=== PATIENT | female | born 1995 ===

== ENCOUNTER 2018-06-05 10:22 | Emergency (ER) | payer MEDICAID, OTHER ==
[2018-06-05 10:42] VITALS: TEMP 97.8; O2SAT 100; BMI 18.8
--- NOTE | 2018-06-05 10:48 | EDPD ---
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 Patient notes she was at work when she began coughing, wheezing, experiencing chest pain, rapid heart rate, and shortness of breath. Patient notes she took 2 pumps of Albuterol, which provided minimal relief. Patient notes this feels like previous asthma attacks, however, it feels stronger and less controllable. Patient denies any fevers, chills, abdominal pain, nausea, vomiting, diarrhea, back pain, neck pain, headache, dizziness, or any other complaint. Time/Duration: Prior to Arrival Symptom Onset: Sudden Symptom Course: Unchanged Activities at Onset: Light Context: Work Past Medical History - Provider Review Nursing Documentation Reviewed: Yes Family/Social History - Physician Review Nursing Documentation Reviewed: Yes Family/Social History: Unknown Family HX Allergies/Home Meds Allergies/Adverse Reactions: Allergies No Known Allergies Allergy (Verified 06/05/18 10:32) Home Medications: Home Meds Medication Instructions Recorded Confirmed Albuterol 0.042% [Albuterol 0.042% 1 puff IH PRN PRN 06/05/18 06/05/18 Inhal Natasha (1.25mg/3ml) UD] Pediatric Review of Systems - Physician Review All systems were reviewed & negative as marked: Yes - Review of Systems Constitutional: Normal Eyes: Normal ENT: Normal Respiratory: SOB, Cough, Wheezing Cardiovascular: Chest Pain Gastrointestinal: Normal. absent: Abdominal Pain, Diarrhea, Nausea, Vomitting Genitourinary Female: Normal. absent: Dysuria, Frequency, Hematuria Musculoskeletal: Normal. absent: Back Pain, Neck Pain Skin: Normal. absent: Rash Neurologic: Normal. absent: Headache, Dizziness Endocrine: Normal Hemo/Lymphatic: Normal Psychiatric: Normal Pediatric Physical Exam - Physical Exam Narrative Physical Exam (Text): 06/05/18 10:52 Gen: VS reviewed, alert, well developed, well nourished, nontoxic, mild distress. ENT: normal pharynx. Eye: EOMI, PERRL. Neck: no JVD, supple, no adenopathy. CV: Tachycardiac, regular rhythm, no rubs, no murmur, no gallops, S1, S2, pulses equal and strong. Pulm: no distress, clear to auscultation, no wheeze, no rhonchi, breath sounds equal, no rales. Abd: soft, nontender, no guarding, no rebound, no rigidity, normal bowel sounds. Ext: no edema. Skin: good color, no rash, no cyanosis. Psych: responds appropriately to questions, anxious. Neuro: oriented x 3, CN2-12 intact grossly, motor intact, sensation intact. Vital Signs Temp Pulse Resp BP Pulse Ox 06/05/18 13:26 68 18 125/69 100 06/05/18 11:39 75 18 127/71 100 06/05/18 10:44 97.8 F 81 22 129/81 100 06/05/18 10:22 97.8 F 81 22 129/81 100 Medical Decision Making ED Course and Treatment: 06/05/18 10:54 Impression: 22 year old female presents to the emergency department complaining of continuous shortness of breath s/p asthma exacerbation. 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 06/05/18 12:19 Chest X-ray reviewed, shows: LUNGS: No active pulmonary disease. PLEURA: No significant pleural effusion identified. No pneumothorax apparent. CARDIOVASCULAR: Normal. OSSEOUS STRUCTURES: No significant abnormalities. VISUALIZED UPPER ABDOMEN: Normal. OTHER FINDINGS: None. IMPRESSION: No active disease. 06/05/18 14:18 patient feels much better and ready to go home. patient states that she has been dealing with diarrhea recently which may contribute to the hypokalemia today. patient only uses her albuterol inhaler as needed. patient will follow up with pcp for repeat potassium levels. - Lab Interpretations Lab Results: 06/05/18 11:10 06/05/18 11:10 Lab Results 06/05/18 11:10: Magnesium 1.8 06/05/18 11:10: D-Dimer, Quantitative < 200 06/05/18 11:10: Urine Opiates Screen Negative, Urine Methadone Screen Negative, Ur Barbiturates Screen Negative, Ur Phencyclidine Scrn Negative, Ur Amphetamines Screen Negative, U Benzodiazepines Scrn Negative, U Oth Cocaine Metabols Negative, U Cannabinoids Screen Negative 06/05/18 11:10: Sodium 141, Potassium 2.7 L*, Chloride 104, Carbon Dioxide 21, Anion Gap 19, BUN 9, Creatinine 0.6 L, Est GFR ( Amer) > 60, Est GFR (Non -Af Amer) > 60, Random Glucose 81, Calcium 9.6, Total Bilirubin 0.8, AST 22, ALT 17, Alkaline Phosphatase 57, Total Protein 8.2, Albumin 4.7, Globulin 3.5, Albumin/Globulin Ratio 1.3 06/05/18 11:10: WBC 10.0, RBC 4.37, Hgb 13.7, Hct 39.7, MCV 90.8, MCH 31.4, MCHC 34.5, RDW 12.9, Plt Count 327, MPV 8.9, Gran % 72.4 H, Lymph % (Auto) 23.5 , Hawkins % (Auto) 3.4, Eos % (Auto) 0.6 L, Baso % (Auto) 0.1, Gran # 7.23 H, Lymph # (Auto) 2.4, Hawkins # (Auto) 0.3, Eos # (Auto) 0.1, Baso # (Auto) 0.01 - RAD Interpretation Radiology Orders: 06/05/18 10:45 X-RAY [CHEST TWO VIEWS (PA/LAT)] [RAD] Stat - EKG Interpretation EKG Interpretation (Text): 06/05/18 13:34 1323: sinus bradycardia at 53 bpm, nml qrs, nml axis, no acute sttw abn Interpreted by ED Physician: Yes - Medication Orders Current Medication Orders: Discontinued Medications Potassium Chloride (K-Dur 20 Meq Er Tab) 60 meq PO STAT STA Stop: 06/05/18 12:57 Last Admin: 06/05/18 13:09 Dose: 60 meq - Scribe Statement The provider has reviewed the documentation as recorded by the Scribvanesa Wright All medical record entries made by the Maryanaibvanesa were at my direction and personally dictated by me. I have reviewed the chart and agree that the record accurately reflects my personal performance of the history, physical exam, medical decision making, and the department course for this patient. I have also personally directed, reviewed, and agree with the discharge instructions and disposition. Disposition/Present on Arrival - Present on Arrival Any Indicators Present on Arrival: No History of DVT/PE: No History of Uncontrolled Diabetes: No Urinary Catheter: No History of Decub. Ulcer: No - Disposition Have Diagnosis and Disposition been Completed?: Yes Diagnosis: Hypokalemia Disposition: HOME/ ROUTINE Disposition Time: 14:20 Patient Plan: Discharge Condition: IMPROVED Discharge Instructions (ExitCare): Hypokalemia Print Language: NORWEGIAN Additional Instructions: Miguelina un seguimiento con un mdico de atencin primaria para que vuelva a controlar pickett nivel de potasio. intente errol a pickett mdico dentro de irma semana para que se controle pickett nivel de felix. Your potassium level today was 2.7. AMADA EGRARD, thank you for letting us take care of you today. Your provider was Dr. Prashant Foss and you were treated for ASTHMA/SOB. The emergency medical care you received today was directed at your acute symptoms. If you were prescribed any medication, please fill it and take as directed. It may take several days for your symptoms to resolve. Return to the Emergency Department if your symptoms worsen, do not improve, or if you have any other problems. Please contact your doctor or call one of the physicians/clinics you have been referred to that are listed on the Patient Visit Information form that is included in your discharge packet. Bring any paperwork you were given at discharge with you along with any medications you are taking to your follow up visit. Our treatment cannot replace ongoing medical care by a primary care provider outside of the emergency department. Thank you for allowing the [facility] team to be part of your care today. If you had an X-Ray or CT scan: A Radiologist will review the ED reading if any change in treatment is needed we will contact you. If you had a blood, urine, or wound culture: It will take several days for the results, if any change in treatment is needed we will contact you. If you had an STI test: It will take 48 hours for the results. Please call after 1 week if you have not heard back. Referrals: Karen Dodson MD [Staff Provider] - Follow up with primary Forms: WORK NOTE
[2018-06-05 11:32] LABS: BASO # 0.01 K/mm3 (0.0-2.0); BASO % 0.1 % (0.0-3.0); EOS # 0.1 (0.0-0.7); EOS % 0.6 % (1.5-5.0); GRAN # 7.23 (1.4-6.5); GRAN % 72.4 % (50.0-68.0); HEMOGLOBIN 13.7 g/dL (12.0-16.0); LYMPH # 2.4 (1.2-3.4); LYMPH % 23.5 % (22.0-35.0); MEAN CELL VOLUME 90.8 fl (80.0-105.0); MEAN CORPUSCULAR HEMOGLOBIN 31.4 pg (25.0-35.0); MEAN CORPUSCULAR HGB CONC 34.5 g/dl (31.0-37.0); MEAN PLATELET VOLUME 8.9 fl (7.0-11.0); MONO # 0.3 (0.1-0.6); MONO % 3.4 % (1.0-6.0); RBC 4.37 10^6/uL (3.5-6.1); RED CELL DISTRIBUTION WIDTH 12.9 % (11.5-14.5)
[2018-06-05 11:39] VITALS: RESP 18
[2018-06-05 12:18] LABS: BLOOD UREA NITROGEN 9 mg/dL (7-21); CALCIUM 9.6 mg/dL (8.4-10.5); GFR AFRICAN-AMERICAN > 60; GFR NON-AFRICAN AMERICAN > 60
--- NOTE | 2018-06-05 12:18 | RAD ---
Date of service: 06/05/2018 HISTORY: dyspnea COMPARISON: No prior. TECHNIQUE: Chest PA and lateral FINDINGS: LUNGS: No active pulmonary disease. PLEURA: No significant pleural effusion identified. No pneumothorax apparent. CARDIOVASCULAR: Normal. OSSEOUS STRUCTURES: No significant abnormalities. VISUALIZED UPPER ABDOMEN: Normal. OTHER FINDINGS: None. IMPRESSION: No active disease.
[2018-06-05 12:19] LABS: ALB/GLOB RATIO 1.3 (1.1-1.8); ALBUMIN 4.7 g/dL (3.0-4.8); ALT/SGPT 17 U/L (7-56); AST/SGOT 22 U/L (14-36)
[2018-06-05] MEDS ORDERED: Potassium Chloride 20 mEq ER Tab PO STA (12:56)
[2018-06-05 13:26] VITALS: BP 125/69; PULSE 68
[2018-06-05 13:44] LABS: BARBITURATES, UR NEGATIVE (NEGATIVE)
[2018-06-05 13:45] LABS: BENZODIAZEPINES, UR NEGATIVE (NEGATIVE); OPIATES, UR NEGATIVE (NEGATIVE); PHENCYCLIDINE, UR NEGATIVE (NEGATIVE)
--- NOTE | 2018-06-05 16:59 | CARD ---
APPROVED REPORT Date of service: 06/05/2018 EKG Measurement Heart [id number] MA [id number] <Conclusion> Sinus bradycardia with short MA Otherwise normal ECG
== END 2018-06-05 14:00 | disposition home or self-care (01) ==
LOC: ED 10:22
DX: E87.6 Hypokalemia (principal); J45.901 Unspecified asthma with (acute) exacerbation
CPT/HCPCS: 71046; 80053; 83735; 84443; 85025; 85378; 93005; 99285; G0480